=== PATIENT | male | born 2000 | race Caucasian/White ===

== ENCOUNTER 2023-11-03 20:27 | Emergency (ER) | payer SELFPAY ==
[2023-11-03 20:29] VITALS: BP 124/71; PULSE 88; RESP 18; TEMP 37.9; O2SAT 96; BMI 28.3
--- NOTE | 2023-11-03 21:06 | RAD_ITS ---
EXAM: XR CHEST, 2 VIEWS CLINICAL INDICATION: cough TECHNIQUE: Frontal and lateral views of the chest. COMPARISON: No relevant prior studies available. FINDINGS: LUNGS AND PLEURAL SPACES: Unremarkable. No consolidation or edema. No pneumothorax. No effusion. HEART: Unremarkable. Cardiac silhouette not enlarged. MEDIASTINUM: Central airways and mediastinal contour are unremarkable. BONES/JOINTS: Unremarkable. No acute fracture. SOFT TISSUES: Unremarkable. RAD/Chest PA and Lateral IMPRESSION: No radiographic evidence of acute cardiopulmonary disease. Electronically Signed: William Cordova MD at 21:36 EST ,
[2023-11-03] MEDS: Ketorolac 30 MG/ML Syringe IM (21:16)
[2023-11-03] MEDS: Acetaminophen 500 MG Tablet 1000 MG PO (21:17)
--- NOTE | 2023-11-03 22:08 | EX.ED.DYSGE1 ---
HPI <ERIC Landaverde - Last Filed: 11/03/23 22:15> History of Present Illness Chief Complaint: Cough Narrative Narrative: Patient is a 23-year-old male with no significant medical history presents to the [facility] with 2 days of generalized bodyaches, cough, headache. Patient states that he started having back pain today, feels hot, short of breath and is here for evaluation. He denies any sick contacts, denies any nausea or vomiting. [facility] <ERIC Landaverde - Last Filed: 11/03/23 22:15> [facility] Medical History (Updated 11/03/23 @ 22:14 by ERIC Landaverde) Fever Home Medications NK 11/03/23 [History Last Taken Unknown] Allergy/AdvReac Type Severity Reaction Status Date / Time No Known Allergies Allergy Verified 11/03/23 20:29 Social History Smoking Status: Unknown if ever smoked ROS <ERIC Landaverde - Last Filed: 11/03/23 22:15> ROS ED ROS Narrative Constitutional: Negative for weight loss, weakness. Positive fever and chills Eyes: Negative for vision loss, vision change, double vision ENT: Negative for any sore throat, ear pain, congestion Cardiovascular: Negative for any chest pain, tightness, palpitations Respiratory: Negative for any sputum production, hemoptysis, dyspnea, dyspnea on exertion, orthopnea. Positive for cough Gastrointestinal: Negative for any abdominal pain, nausea, vomiting, diarrhea, constipation, blood in stool, blood in vomit : Negative for any urinary frequency, dysuria, retention, blood in urine Muscle skeletal: Negative for any arthralgias, neck pain, back pain. Positive for myalgias Neurological: Negative for any headache, syncope, paresthesias, dizziness Skin: Negative for any rashes, lumps, itching, abrasions, lacerations Psychiatric: Negative for any depression, anxiety, stress, suicidal ideation, homicidal ideation Hematologic: Negative for any easy bruising, excessive bruising, easy bleeding Allergies: Negative for any eczema, hives, rash EXAM <ERIC Landaverde - Last Filed: 11/03/23 22:15> Physical Exam Narrative Exam Narrative: Vital signs reviewed. Patient does appear to not feel well, patient was fever here. HEET: Head normocephalic atraumatic, TMs clear bilaterally. Posterior pharynx is clear, moist mucous membranes. Nares clear bilaterally. Neck: Supple with no lymphadenopathy or tenderness. No signs of meningismus. Cardiac: Regular rate and rhythm no murmurs gallops or rubs, equal peripheral pulses bilaterally. Respiratory: Lungs clear to auscultation bilaterally. No chest tenderness. Abdomen: Soft, nontender, nondistended. No abdominal bruit or pulsatile masses. No hepatosplenomegaly Extremities: No peripheral edema, no signs of gross trauma or deformity. Active full range of motion of all extremities. Neuro: Cranial nerves II through XII intact, no focal neurological deficits. Skin: Clean dry and intact with no rash, purpura, petechiae, vesicles or pustules. Skin warm to the touch Backs/flank: No CVA tenderness, no midline spinal tenderness, no deformity. Psych: Normal mood and affect. No SI, HI or acute psychosis. Const Vital Signs: 11/03/23 20:29 11/03/23 21:19 Temperature 100.2 F H Temperature Source Temporal Pulse Rate 88 Respiratory Rate 18 Respiratory Effort Normal Non-Labored Respiratory Depth Normal Respiratory Pattern Normal Blood Pressure 124/71 H Blood Pressure Mean 88 Pulse Ox 96 Oxygen Delivery Method Room Air <Dr. Quincy Power MD - Last Filed: 11/03/23 23:27> Physical Exam Const Vital Signs: 11/03/23 20:29 11/03/23 21:19 Temperature 100.2 F H Temperature Source Temporal Pulse Rate 88 Respiratory Rate 18 Respiratory Effort Normal Non-Labored Respiratory Depth Normal Respiratory Pattern Normal Blood Pressure 124/71 H Blood Pressure Mean 88 Pulse Ox 96 Oxygen Delivery Method Room Air [facility] [place] <ERIC Landaverde - Last Filed: 11/03/23 22:15> [facility] [place] Radiography Diagnostic Testing: Clinical Impression(s) from Imaging Studies Chest X-Ray 11/03/23 21:06 IMPRESSION: No radiographic evidence of acute cardiopulmonary disease. Electronically Signed: William Cordova MD at 21:36 EST , Treatment and Re-Evaluation :: Patient appears generally well, patient appears nontoxic, vital signs are stable. Presenting to the emergency department with complaints of cough, congestion, body aches, fever and chills and headache. Differential diagnosis includes pneumonia, viral symptoms, sinusitis. Patient chest x-ray interpreted by the ER physician was negative for any acute process. Patient's rapid COVID was negative, rapid RSV was negative, patient was positive for influenza A. Influenza A does correlate with the patient's symptoms. Patient felt much better after the Tylenol Toradol. I did stretch the patient the need to take Tylenol and ibuprofen to 5 for fever, as well as to maintain hydration. He verbally understands, instructed return for any worsening symptoms. <Dr. Quincy Power MD - Last Filed: 11/03/23 23:27> [facility] [place] MDM Narrative Medical decision making narrative: I have personally performed a face to face assessment of the patient and have reviewed the BRENT Note. I performed a substantive portion of the visit including all aspects of the following. My siddiqui findings include: History: Patient presents with myalgias, mild cough without dyspnea, mild diarrhea, mild headache, and cold feelings this has been going on for about 2 days. No meds taken. No known exposures. No abdominal pain. Exam:Patient is awake alert appropriate. Mucous membranes are moist. No meningismus. No sinus tenderness. Lungs are clear. Saturations normal at 96% on room air showing no hypoxia. Heart is regular. Not tachycardic. Abdomen is soft and no tenderness anywhere. Extremities show no rash petechiae or tenderness or swelling. Medical Decision Making: Patient's x-ray shows no acute process. He is flu a is positive which is consistent with his symptoms. Tylenol rest hydration should be appropriate. Radiography Diagnostic Testing: Clinical Impression(s) from Imaging Studies Chest X-Ray 11/03/23 21:06 IMPRESSION: No radiographic evidence of acute cardiopulmonary disease. Electronically Signed: William Cordova MD at 21:36 EST , Discharge Plan Triage Chief Complaint: Cough ED Midlevel Provider: Domingo Tapia ED Provider: Quincy Power Dx/Rx/DC Orders Clinical Impression: Influenza A Instructions: ED Influenza (Adult) Prescriptions: No Action NK Primary Care Provider: Dave Lee Referrals: Dave Lee MD [Primary Care Provider] - Activity Restrictions/Additional Instructions: Please follow-up outpatient take ibuprofen every 8 hours can take up to 600 mg. Take Tylenol 1 g every 6 hours Disposition Disposition: Home, Self Care Discharge Date/Time: 11/03/23 22:28
== END 2023-11-03 22:28 | disposition home or self-care (01) ==
PROVIDERS: Emergency Provider Emergency Medicine; PCP Family Medicine; Visit Provider Emergency Medicine
DX: J10.1 Influenza due to other identified influenza virus with other respiratory manifestations (principal)
CPT/HCPCS: 71046; 87631; 96372; 99283